=== PATIENT | female | born 1975 | race Caucasian/White ===

== ENCOUNTER 2020-03-09 12:24 | Outpatient (CLI) | payer OTHER, SELFPAY ==
--- NOTE | ~2020-03-09 | MM_ITS ---
EXAMINATION: MM screening luis m BI w chato HISTORY: Screening TECHNIQUE: Craniocaudal and mediolateral oblique 3-D tomosynthesis images were obtained and synthetic 2-D images were generated. CAD analysis was submitted and interpreted. COMPARISON: No prior mammogram is available for comparison at this institution. BREAST PARENCHYMAL COMPOSITION: There are scattered areas of fibroglandular density. FINDINGS: There is no evidence of suspicious mass, calcification, or architectural distortion to sugg est malignancy in either breast. There has been no suspicious interval change. IMPRESSION: 1. No mammographic evidence of malignancy. 2. Recommend routine screening mammography in one year. BI-RADS Category 1: Negative Reviewed, dictated and finalized at location A.
== END 2020-03-09 12:25 | disposition home or self-care (01) ==
LOC: CHSIMG 12:27
PROVIDERS: PCP Internal Medicine; Visit Provider Obstetrics & Gynecology
DX: Z12.31 Encounter for screening mammogram for malignant neoplasm of breast (principal)
CPT/HCPCS: 77063; 77067

== ENCOUNTER 2022-04-27 12:48 | Outpatient (CLI) | payer OTHER, SELFPAY ==
--- NOTE | ~2022-04-27 | MM_ITS ---
EXAMINATION: MM screening luis m BI w chato HISTORY: Screening mammogram TECHNIQUE: Craniocaudal and mediolateral oblique 3-D tomosynthesis images were obtained and synthetic 2-D images were generated. CAD analysis was submitted and interpreted. COMPARISON: 03/09/2020 BREAST PARENCHYMAL COMPOSITION: There are scattered areas of fibroglandular density. FINDINGS: No suspicious mass, calcification, or architectural distortion are identified in either sarai ast to suggest malignancy. There has been no suspicious interval change. IMPRESSION: 1. No mammographic evidence of malignancy. 2. Recommend routine screening mammography in one year. BI-RADS Category 1: Negative Reviewed, dictated and finalized at location A. 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
== END 2022-04-27 12:49 | disposition home or self-care (01) ==
LOC: CHSIMG 12:50
PROVIDERS: PCP Internal Medicine; Visit Provider Internal Medicine
DX: Z12.31 Encounter for screening mammogram for malignant neoplasm of breast (principal)
CPT/HCPCS: 77063; 77067

== ENCOUNTER 2022-05-03 06:02 | Day surgery (SDC) | payer OTHER, SELFPAY ==
[2022-04-25 14:09] VITALS: BMI 39.7
[2022-04-26 14:56] VITALS: BMI 40.7
[2022-05-03 06:20] VITALS: BP 137/93; PULSE 63; RESP 20; TEMP 36.6; O2SAT 99
--- NOTE | 2022-05-03 06:50 | WPDANESEPPF ---
Anes - Initial Pre Proc Eval Procedure: Operation Date: 05/03/22 07:30 Proposed Procedures p Screening Colonoscopy - Cesar Plasencia DO Date/Time: 05/03/22 06:50 Surgeon: Cesar Plasencia DO Pre Op Diagnosis: Neoplasm Screening Patient Data Age: 46 Gender: F Height: 1.7 m Weight: 115.8 kg Allergies Allergy/AdvReac Type Severity Reaction Status Date / Time METOCLOPRAMIDE HCL AdvReac DISTONIC Uncoded 05/03/22 06:27 REACTIONS Home Medications Medication Instructions Recorded Confirmed Type Pepcid 20 mg PO DAILY 04/26/22 05/03/22 History Zyrtec 10 mg PO DAILY 04/26/22 05/03/22 History atenolol 50 mg tablet 50 mg PO DAILY 04/26/22 05/03/22 History bupropion HCl 300 mg 24 hr tablet, 300 mg PO DAILY 04/26/22 05/03/22 History extended release Patient hx anesthesia problems: none Family hx anesthesia problems: none Results Review: All pre-operative results and documents have been reviewed as part of the pre-operative evaluation. [facility] Past Medical History Medical History (Updated 05/03/22 @ 06:54 by Steve Mcdaniels DO) Anxiety Depression GERD (gastroesophageal reflux disease) Hypertension Social History Social History Smoking status: Never smoker Alcohol intake: current Alcohol use details: patient states she drinks socially Substance use: never Substance use type: does not use Living arrangements: with family Anes - Eval Final PreProcedure Day of Procedure 05/03/22 06:50 Patient weight: morbidly obese Heart: regular rate and rhythm Lungs: clear to auscultation Airway: Mallampati scale class II Neurological: alert and oriented Last oral intake: >/= 8 hours ASA classification: III Emergent: no Anesthetic plan: proceed Anesthesia type and monitoring: general GIVS and standard monitoring Results Review: All pre-operative results and documents have been reviewed as part of the pre-operative evaluation. Informed Consent: The patient's anesthetic plan and its attendant risks and benefits were discussed with the patient/family/POA. Questions were solicited and answers provided to the satisfaction of the patient/family/POA.
[2022-05-03] MEDS: LACTATED RINGERS 1,000 ML 150 ML IV CONT (07:00)
--- NOTE | 2022-05-03 07:20 | PM.IMHP ---
H&P: HPI History of Present Illness Date/Time: 05/03/22 07:20 Chief Complaint: fam hx colon cancer Narrative: 46 yo woman prsents for colonoscopy. Last colonoscopy done 5 years ago. She has fam hx colon cancer in her sister who was diagnosed around 45. Denies hematochezia or melena. Review of Systems Review of Systems: All systems reviewed & are unremarkable except as noted in HPI and below Constitutional: Constitutional: Denies chills, Denies fever(s), Denies headache(s) and Denies weight loss Eyes: Eyes: Denies change in vision ENT: Denies dizziness, Denies headache(s), Denies neck mass and Denies throat swelling Cardiovascular: Cardiovascular: Denies chest pain, Denies lightheadedness and Denies dyspnea Respiratory: Respiratory: Denies cough, Denies dyspnea and Denies wheezing Gastrointestinal: Gastrointestinal: Denies abdominal pain, Denies change in bowel habits, Denies nausea and Denies vomiting Genitourinary: Genitourinary: Denies hematuria and Denies dysuria Musculoskeletal: Musculoskeletal: Reports as per HPI Integumentary/Breasts: Skin/Breast: Reports as per HPI Neurologic: Denies dizziness and Denies headache(s) Allergic/Immunologic: Allergic/Immunologic: Denies throat swelling and Denies wheezing [facility] Past Medical History Medical History (Updated 05/03/22 @ 07:21 by Cesar Plasencia DO) Anxiety Depression GERD (gastroesophageal reflux disease) Hypertension Social History Social History Smoking status: Never smoker Alcohol intake: current Alcohol use details: patient states she drinks socially Substance use: never Substance use type: does not use Living arrangements: with family Meds Home Medications and Allergies Home Medications Medication Instructions Recorded Confirmed Type Pepcid 20 mg PO DAILY 04/26/22 05/03/22 History Zyrtec 10 mg PO DAILY 04/26/22 05/03/22 History atenolol 50 mg tablet 50 mg PO DAILY 04/26/22 05/03/22 History bupropion HCl 300 mg 24 hr tablet, 300 mg PO DAILY 04/26/22 05/03/22 History extended release Allergies Allergy/AdvReac Type Severity Reaction Status Date / Time METOCLOPRAMIDE HCL AdvReac DISTONIC Uncoded 05/03/22 06:27 REACTIONS Vital Signs Vital Signs - 24 hr 05/03/22 06:20 Temperature 36.6 C Pulse Rate 63 Respiratory Rate 20 Blood Pressure 137/93 H Pulse Oximetry 99 Oxygen Delivery Room Air Exam Const: General: no acute distress and alert Orientation/consciousness: patient oriented x3 HENMT: Head: normocephalic and atraumatic Ears: hearing grossly normal bilaterally Face/Nose/Sinus: Normal nares present Mouth: Yes Normal oral and palatal mucosa present Eyes: Periorbital: periorbital findings normal Sclera: sclerae normal EOM: EOMs intact bilaterally Neck: Neck: normal visual inspection, no lymphadenopathy and trachea midline Chest: Chest palpation & inspection: normal inspection of the chest Resp: Effort & Inspection: normal respiratory effort Auscultation: clear to auscultation bilaterally Cardio: Jugular venous distension: no JVD Rate: regular rate Rhythm: regular rhythm Heart sounds: S1 normal heart sound present and S2 normal heart sound present Peripheral pulses: Peripheral pulses 2+ throughout GI: Inspection: normal to inspection GI Palp: Yes Soft to palpation, No Tenderness to palpation present (GI), No Guarding due to palpation present (GI) and No Rebound tenderness present Percussion: Yes normal to percussion Auscultation: normal bowel sounds : General: Yes no CVA tenderness Back/Spine/Pelvis: Back: no CVA tenderness Neuro: General: patient oriented x3, no focal motor deficits and CN's II-XI intact bilaterally Cognition (Neuro): normal cognition Speech: normal speech Motor exam (neuro): 5/5 motor strength present throughout Extrem: General: capillary refill normal and no clubbing, cyanosis or edema Assessment and Plan Assessment and plan (1) Family hx of
[2022-05-03 07:56] VITALS: BP 117/78; PULSE 64; RESP 14; O2SAT 98
[2022-05-03 08:06] VITALS: BP 114/82; PULSE 63; RESP 14; O2SAT 100
[2022-05-03 08:16] VITALS: BP 122/83; PULSE 54; RESP 14; O2SAT 100
--- NOTE | 2022-05-03 08:47 | WPDANESPN ---
Anes - Prog Note Post-Op Date/Time: 05/03/22 08:47 Cardiovascular status: normal Respiratory status: normal Airway patency: baseline Mental status: baseline Post-Op hydration status: normal Vital Signs: Last Vital Signs Temp 36.6 C 05/03/22 06:20 Pulse 54 L 05/03/22 08:16 Resp 14 05/03/22 08:16 BP 122/83 05/03/22 08:16 Pulse Ox 100 05/03/22 08:16 O2 Del Method Room Air 05/03/22 08:16 Pain Score (VAS): 0 I/O: Intake & Output 05/02/22 05/03/22 05/03/22 23:59 07:59 15:59 Intake Total 200 Balance 200 Post-procedural complaints: none Patient Feedback: Patient satisfied with anesthetic care. Other Findings: Patient vital signs back to baseline. Patient denies nausea and vomiting. Patient's pain under control. Patient OK for discharge.
== END 2022-05-03 08:35 | disposition home or self-care (01) ==
PROVIDERS: PCP Internal Medicine; Visit Provider Surgery
PROC: 0DJD8ZZ Inspection of Lower Intestinal Tract, Via Natural or Artificial Opening Endoscopic (ICD-10-PCS; CPT 45378; principal; 2022-05-03 07:30)
DX: Z80.0 Family history of malignant neoplasm of digestive organs (principal)
CPT/HCPCS: 45380

== ENCOUNTER 2022-05-03 08:00 | Outpatient (NON) | payer OTHER, SELFPAY | END 2022-05-03 08:01 | disposition home or self-care (01) | LOC: ANHLAB 05-04 08:07 | PROVIDERS: PCP Internal Medicine; Visit Provider Surgery | DX: D12.5 Benign neoplasm of sigmoid colon (principal); Z80.0 Family history of malignant neoplasm of digestive organs | CPT/HCPCS: 88305 ==

== ENCOUNTER 2023-07-11 08:30 | Outpatient (CLI) | payer OTHER, SELFPAY ==
--- NOTE | ~2023-07-11 | MM_ITS ---
EXAMINATION: MM screening luis m BI w chato HISTORY: Screening mammogram TECHNIQUE: Craniocaudal and mediolateral oblique 3-D tomosynthesis images were obtained and synthetic 2-D images were generated. CAD analysis was submitted and interpreted. COMPARISON: 04/27/2022, 03/09/2020 BREAST PARENCHYMAL COMPOSITION: There are scattered areas of fibroglandular density. FINDINGS: No suspicious mass, calcification, or architectural distortion are identified in either sarai ast to suggest malignancy. There has been no suspicious interval change. IMPRESSION: 1. No mammographic evidence of malignancy. 2. Recommend routine screening mammography in one year. BI-RADS Category 1: Negative Reviewed, dictated and finalized at location A. 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
== END 2023-07-11 08:31 | disposition home or self-care (01) ==
LOC: CHSIMG 08:31
PROVIDERS: PCP Internal Medicine; Visit Provider Internal Medicine
DX: Z12.31 Encounter for screening mammogram for malignant neoplasm of breast (principal)
CPT/HCPCS: 77063; 77067

== ENCOUNTER 2024-04-30 12:27 | Emergency (ER) | payer OTHER, SELFPAY ==
--- NOTE | ~2024-04-30 | CT_ITS ---
EXAMINATION: CT abdomen pelvis w con DATE: 04/30/2024 13:42 INDICATION: Right lower quadrant abdominal pain, nausea and vomiting TECHNIQUE: Computed tomography (CT) of the abdomen and pelvis was performed with 100 mL Omnipaque-350 intravenous contrast. Automated exposure control and iterative reconstruction technique were employe d. The dose-length product was 1398.95 mGy-cm. COMPARISON: None FINDINGS: Lung bases are clear. Heart size is normal. No pericardial or pleural effusion. Small sliding-type hi atal hernia. Liver, gallbladder, spleen, pancreas and bilateral adrenal glands are normal. 6 mm cyst at the lower pole the right kidney. Otherwise normal bilateral kidneys and ureters. Bowels including the appendix are normal. Bladder, anteverted uterus and bilateral adnexa are unremarkable. No free in traperitoneal gas or fluid. No pathologically enlarged abdominal or pelvic lymphadenopathy. Mild lumb ar levoscoliosis with moderate to severe spondylosis. IMPRESSION: 1. No acute intra-abdominal/pelvic process. Specifically the gallbladder and appendix are normal. Reviewed, dictated and finalized at location A. 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 No acute intra-abdominal/pelvic process. Specifically the gallbladder and ap pendix are normal.
[2024-04-30 12:27] VITALS: BP 154/97; PULSE 75; RESP 18; TEMP 36.4; O2SAT 98
[2024-04-30 12:32] VITALS: BP 154/97; PULSE 72; RESP 18; O2SAT 99
--- NOTE | 2024-04-30 12:36 | ED_ITS ---
HPI - Abdominal Pain General Chief Complaint: Abdominal Pain Stated Complaint: abd pain Time Seen by Provider: 04/30/24 12:30 Source: patient Mode of arrival: ambulatory Limitations: no limitations History of Present Illness HPI narrative: 48 years old white female drove herself to the emergency room complaining of right lower quadrant pain started in the last few days intermittent, today has been steady and worse than before. Associated with nausea, vomiting once and loose stool once. She denies any fever or chills or history of abdominal surgery. Last minutes for. Four months ago. History of hypertension, does not smoke or use drugs drink alcohol occasionally. Patient had upper respiratory infection few days ago finished a course of doxycycline x7 days 2 days ago. Currently she denies any respiratory symptoms or coughing or sore throat. Patient denies aggravating or relieving factors or radiation of pain Related Data Home Medications Medication Instructions Recorded Confirmed atenolol 50 mg tablet 50 mg PO DAILY 04/26/22 04/30/24 bupropion HCl 300 mg 24 hr tablet, 300 mg PO DAILY 04/26/22 04/30/24 extended release Allergies Allergy/AdvReac Type Severity Reaction Status Date / Time METOCLOPRAMIDE HCL AdvReac DISTONIC Uncoded 04/30/24 12:36 REACTIONS Review of Systems Review of Systems: All systems reviewed & are unremarkable except as noted in HPI and below PMFSH Past Medical History Medical History Anxiety Depression GERD (gastroesophageal reflux disease) Hypertension Family History Family History Mother Hypertension Father Hypertension Social History Social History Smoking status: Never smoker Alcohol intake: current Alcohol use details: patient states she drinks socially Substance use: never Substance use type: does not use Living arrangements: with family Exam Narrative: General appearance: Well-developed, well-nourished Skin: Normal color Head: Normocephalic, nontraumatic Eyes: Clear conjunctiva ENT: Oropharynx normal, ears normal, nose normal Neck: Supple, nontender Chest and respiratory: Airway patent, no respiratory distress, no accessory muscle use Heart: Regular rate/rhythm Abdomen: Soft, Right lower quadrant tenderness, no organomegaly, quiet bowel sounds Vascular: Normal peripheral pulses, normal capillary refill. 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 DIRECTOR is normal as tested, no gross motor defi cit Course Vital Signs Vital signs: Vital Signs Temperature 36.4 C 04/30/24 12:27 Pulse Rate 75 04/30/24 12:27 Respiratory Rate 18 04/30/24 12:27 Blood Pressure 154/97 H 04/30/24 12:27 Pulse Oximetry 98 04/30/24 12:27 Oxygen Delivery Room Air 04/30/24 12:27 Temperature 36.4 C 04/30/24 12:27 Pulse Rate 75 04/30/24 12:27 Respiratory Rate 18 04/30/24 12:27 Blood Pressure 154/97 H 04/30/24 12:27 Pulse Oximetry 98 04/30/24 12:27 Oxygen Delivery Room Air 04/30/24 12:27 MDM - Abdominal Pain MDM Narrative Medical decision making narrative: patient presents with right lower quadrant pain Vital signs showing blood pressure 154/97 otherwise normal Physical examination showed mild to moderate tenderness right lower quadrant, no guarding rebound Differential diagnosis include appendicitis, ovarian cyst, constipation, urinary tract infection, colitis, diverticulitis, urinary tract infection, kidney stone. Blood workup today includes CBC, CMP, lipase showed WBC of 14.3, probably reactive leukocytosis or secondary to recent intake of steroid. Urinalysis today showed No signs of infection CT abdomen and pelvis with IV contrast showed no acute abdominal process Patient abdominal pain could be secondary to abdominal wall muscle strain / sprain secondary to long week of coughing, stress like symptoms or possible to intra-abdominal infection will be become more obvious in the next few hours/days . Discharged on dicyclomine and Zofran Differential Diagnosis Differential diagnosis: Likely other ( as above) Medical Records Attestation: I reviewed the patient's medical records. Lab Data Attestation: I reviewed the patient's lab results. 04/30/24 12:53 04/30/24 12:53 Labs: Lab Results 04/30/24 04/30/24 Range/Units 12:53 12:58 WBC 14.3 H (4.8-10.8) K/mm3 RBC 5.16 (4.20-5.40) M/mm3 Hgb 15.1 H (12.0-15.0) g/dL Hct 44.9 (35.0-49.0) % MCV 87.0 (78.0-102.0) fL MCH 29.3 (27.0-31.0) pg MCHC 33.6 (32-36) g/dL RDW 13.6 (11.6-14.4) % Plt Count 282 (150-420) K/mm3 MPV 9.3 (9.2-11.8) fl Immature Gran % (Auto) 0.7 H (0.0-0.0) % Neut % (Auto) 86.9 H (50.0-70.0) % Lymph % (Auto) 5.5 L (18.0-42.0) % [place] % (Auto) 5.2 (2.0-11.0) % Eos % (Auto) 1.3 (1.0-6.0) % Baso % (Auto) 0.4 (0.0-1.0) % Lymph # (Auto) 0.79 L (1.10-4.50) K/mm3 [place] # (Auto) 0.74 (0.10-0.90) K/mm3 Eos # (Auto) 0.19 (0.02-0.50) K/mm3 Baso # (Auto) 0.06 (0.00-0.10) K/mm3 Abs Immat Gran (auto) 0.10 H (0.00-0.00) K/mm3 Absolute Neuts (auto) 12.46 H (1.70-7.20) K/mm3 Absolute Nucleated RBC 0.00 (0.00-0.00) K/mm3 Nucleated RBC % 0.0 (0-0.0) % Sodium 136 (136-145) mmol/L Potassium 4.3 (3.5-5.1) mmol/L Chloride 101 (98-108) mmol/L Carbon Dioxide 30 (21-32) mmol/L Anion Gap 5 (4-12) mmol/L BUN 11 (7-18) mg/dL Creatinine 1.00 (0.55-1.02) mg/dL Estim Creat Clear Calc 79 ml/min Estimated GFR 59 (59 - ) Glucose 105 H (70-99) mg/dL Calculated Osmolality 281 L (285-295) mOsm/kg Calcium 9.2 (8.5-10.1) mg/dL Total Bilirubin 0.4 (0.00-1.00) mg/dL AST 22 (15-37) U/L ALT 29 (14-59) U/L Alkaline Phosphatase 101 (46-116) U/L Total Protein 7.6 (6.4-8.2) g/dL Albumin 3.6 (3.4-5.0) g/dL Lipase 141 H (16-77) U/L Urine Color Yellow (Yellow) Urine Appearance Clear (Clear) Urine pH 6.5 (5.0-8.0) Ur Specific [place] 1.020 (1.010-1.020) Urine Protein 1+ H (Negative) Urine Glucose (UA) Negative (Negative) Urine Ketones Trace H (Negative) Ur Blood (Man) Negative (Negative) Urine Nitrate Negative (Negative) Urine Bilirubin 1+ H (Negative) Urine Urobilinogen 1.0 (0.2-1.0) mg/dL Leukocyte Esterase Rfl Negative (Negative) BRIANA/UL Urine RBC None seen (0-2) /hpf Urine WBC None seen (0-3) /hpf Ur Squamous Epith Cells Moderate H (Few) /hpf Urine Bacteria Trace (None) /hpf Urine Mucus Moderate H /lpf Urine Test Negative Imaging Data Radiologist's impression: ITS Impressions Abdomen/Pelvis CT 04/30/24 13:45 IMPRESSION: 1. No acute intra-abdominal/pelvic process. Specifically the gallbladder and appendix are normal. Critical Care Time Critical Care Time Critical Care Time: No Discharge Plan Discharge Clinical Impression: Abdominal pain Patient Disposition: Home, Self-Care Condition: Stable Instructions: Abdominal Pain (ED) Additional Instructions: Return if symptoms are worsening , call your family physician for appointment, take Tylenol as as needed for aches and pain, continue home medications. Prescriptions: New dicyclomine 20 mg tablet 20 mg PO QID PRN (Reason: abdominal pain) Qty: 20 0RF ondansetron HCl 4 mg tablet 4 mg PO Q4H Qty: 10 0RF Rx Instructions: 1st dose 1-2 hr before radiation No Action atenolol 50 mg tablet 50 mg PO DAILY bupropion HCl 300 mg tablet extended release 24 hr 300 mg PO DAILY Follow-up/Referrals: Buck Andre MD [Primary Care Provider] -
[2024-04-30 12:46] VITALS: BP 143/98; PULSE 72; RESP 18; O2SAT 99
[2024-04-30 12:59] LABS: Basophils Absolute Auto 0.06 K/mm3 (0.00-0.10); Basophils Percent Auto 0.4 % (0.0-1.0); Eosinophils Absolute Auto 0.19 K/mm3 (0.02-0.50); Eosinophils Percent Auto 1.3 % (1.0-6.0); Hematocrit 44.9 % (35.0-49.0); Hemoglobin 15.1 g/dL (12.0-15.0); Immature Granulocyte Percent A 0.7 % (0.0-0.0); Lymphocytes Absolute Auto 0.79 K/mm3 (1.10-4.50); Lymphocytes Percent Auto 5.5 % (18.0-42.0); Mean Corpuscular HGB Conc 33.6 g/dL (32-36); Mean Corpuscular Hemoglobin 29.3 pg (27.0-31.0); Mean Platelet Volume 9.3 fl (9.2-11.8); Monocytes Absolute Auto 0.74 K/mm3 (0.10-0.90); Monocytes Percent Auto 5.2 % (2.0-11.0); Neutrophils Absolute Auto 12.46 K/mm3 (1.70-7.20); Neutrophils Percent Auto 86.9 % (50.0-70.0); Platelet Count Result 282 K/mm3 (150-420); Red Blood Count 5.16 M/mm3 (4.20-5.40); Red Cell Distribution Width 13.6 % (11.6-14.4); White Blood Count 14.3 K/mm3 (4.8-10.8)
[2024-04-30] MEDS: SODIUM CHLORIDE 0.9% IV 1,000 ML 999 ML IV CONT (13:03)
[2024-04-30] MEDS: ONDANSETRON INJ 4 MG/2 ML VIAL IV PUSH (13:04)
[2024-04-30 13:05] LABS: Add Urine Microscopic? YES; Appearance Urine Clear (Clear); Bilirubin Urine 1+ (Negative); Blood Urine Negative (Negative); Glucose Urine UA Negative (Negative); Ketones Urine Trace (Negative); Leukocyte Esterase Ur Negative LEU/UL (Negative); Nitrate Urine Negative (Negative); Protein Urine 1+ (Negative); pH Urine 6.5 (5.0-8.0)
[2024-04-30] MEDS: MORPHINE SULFATE (*CRX) 4 MG/ML INJ IV PUSH (13:05)
[2024-04-30 13:07] LABS: Pregnancy On Board Control Positive; Urine Pregnancy Test Negative
[2024-04-30 13:09] LABS: Color Urine Yellow (Yellow); RBC Urine None seen /hpf (0-2); Squamous Epithelial Cell Urine Moderate /hpf (Few); WBC Urine None seen /hpf (0-3)
[2024-04-30 13:10] LABS: Bacteria Urine Trace /hpf; Mucus Urine Moderate /lpf
--- NOTE | 2024-04-30 13:10 | PC.NURSE ---
pt reported she would be able to find transportation if she needed. pt is medicated without difficulty. lights are off, blanket provided, pt repositioned, call light in reach. pt denies any other needs or complaints at this time. will continue to monitor.
[2024-04-30 13:14] LABS: Alanine Aminotransferase 29 U/L (14-59); Albumin Level 3.6 g/dL (3.4-5.0); Alkaline Phosphatase 101 U/L (46-116); Anion Gap 5 mmol/L (4-12); Aspartate Amino Transferase 22 U/L (15-37); Bilirubin,Total 0.4 mg/dL (0.00-1.00); Blood Urea Nitrogen 11 mg/dL (7-18); Calcium 9.2 mg/dL (8.5-10.1); Carbon Dioxide 30 mmol/L (21-32); Chloride 101 mmol/L (98-108); Estimated CRCL calculation 79 ml/min; Estimated Glomerular Filt Rate 59; Glucose 105 mg/dL (70-99); Lipase 141 U/L (16-77); Osmolality Calculated 281 mOsm/kg (285-295); Potassium 4.3 mmol/L (3.5-5.1); Sodium 136 mmol/L (136-145); Total Protein 7.6 g/dL (6.4-8.2)
[2024-04-30 13:51] VITALS: BP 149/100; PULSE 70; RESP 16; O2SAT 97
--- NOTE | 2024-04-30 13:54 | PC.NURSE ---
PT HAS RETURNED FROM CT, IS SITTING UP ON STRETCHER WITH IVF INFUSING WITHOUT DIFFICULTY. PT REPORTS NO CHANGE IN PAIN STATUS, HOWEVER DOES NOT WANT ANY MORE PAIN MEDICATION. PT IS AWAITING RESULTS AT THIS TIME. WILL CONTINUE TO MONITOR.
[2024-04-30 14:01] VITALS: BP 149/99; PULSE 68; RESP 16; O2SAT 98
[2024-04-30 14:15] VITALS: O2SAT 97
--- NOTE | 2024-04-30 14:37 | PC.NURSE ---
pt is awaiting transport home prior to dc.
== END 2024-04-30 14:25 | disposition home or self-care (01) ==
PROVIDERS: Emergency Provider Emergency Medicine; PCP Internal Medicine
DX: R10.31 Right lower quadrant pain (principal); I10 Essential (primary) hypertension; F41.9 Anxiety disorder, unspecified; F32.A Depression, unspecified
CPT/HCPCS: 36415; 74177; 80053; 81001; 81025; 83690; 85025; 96361; 96374; 96375; 99284; J2270; J2405; J7030; Q9967

== ENCOUNTER 2024-08-15 08:26 | Outpatient (CLI) | payer OTHER, SELFPAY ==
--- NOTE | ~2024-08-15 | MM_ITS ---
EXAMINATION: MM screening luis m BI w chato HISTORY: Screening TECHNIQUE: Craniocaudal and mediolateral oblique 3-D tomosynthesis images were obtained and synthetic 2-D images were generated. CAD analysis was submitted and interpreted. COMPARISON: Comparison to multiple prior studies sequentially, with oldest reviewed study dated 02/25. BREAST PARENCHYMAL COMPOSITION: Not dense: There are scattered areas of fibroglandular density. FINDINGS: There is no evidence of suspicious mass, calcification, or architectural distortion to sugg est malignancy in either breast. There has been no suspicious interval change. IMPRESSION: 1. No mammographic evidence of malignancy. 2. Recommend routine screening mammography in one year. BI-RADS Category 1: Negative Reviewed, dictated and finalized at location B.
== END 2024-08-15 08:27 | disposition home or self-care (01) ==
LOC: CHSIMG 08:27
PROVIDERS: PCP Internal Medicine; Visit Provider Nurse Practitioner Family
DX: Z12.31 Encounter for screening mammogram for malignant neoplasm of breast (principal)
CPT/HCPCS: 77063; 77067

== ENCOUNTER 2024-12-17 11:20 | Outpatient (RCR) | payer OTHER, SELFPAY ==
[2024-12-17 12:03] VITALS: BMI 42.0
== END 2025-03-02 08:50 | disposition home or self-care (01) ==
LOC: ANHDMC 11:20
PROVIDERS: PCP Internal Medicine; Visit Provider Internal Medicine
DX: R73.01 Impaired fasting glucose (principal); Z71.3 Dietary counseling and surveillance
CPT/HCPCS: 97802

== ENCOUNTER → 2025-04-16 08:34 | Outpatient (CLI) | payer OTHER, SELFPAY ==
--- NOTE | ~2025-04-16 | XR_ITS ---
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 Findings: No acute fracture or malalignment. No significant degenerative changes. Soft tissues unremarkable. Impression: No acute fracture or malalignment. Reviewed, dictated and finalized at location P. ERNMAKER METAL BENCH Impression: No acute fracture or malalignment.
== END ==
PROVIDERS: PCP Internal Medicine; Visit Provider Internal Medicine
DX: M79.645 Pain in left finger(s) (principal)
CPT/HCPCS: 73140